=== PATIENT | female | born 1995 | race Caucasian/White ===

== ENCOUNTER 2018-10-11 18:29 | Emergency (ER) | payer SELFPAY ==
[~2018-10-11] VITALS: Ht 157.5 cm; Wt 43.2 kg
[2018-10-11 18:51] VITALS: Ht 157.5 cm; Wt 43.2 kg
[2018-10-11] MEDS ORDERED: MIDODRINE HCL2.5 MG PO (18:52)
[2018-10-11 19:29] LABS: BASOPHILS 0.2 % (0-2); EOSINOPHILS 2.5 % (0-7); HEMATOCRIT 38.3 % (36.0-48.0); HEMOGLOBIN 13.4 g/dL (12-16); IMMATURE GRANULOCYTES 0.2 % (0-5); LYMPHOCYTES 46.2 % (15-50); MCH 31.7 pg (26.0-34.0); MCV 90.5 fL (80.0-100.0); MEAN PLATELET VOLUME 9.3 fL (7.4-10.4); MONOCYTES 8.1 % (2-11); NEUTROPHILS 42.8 % (40-80); PLATELET COUNT 183 10x3/uL (130-400); RBC 4.23 10x6/uL (4.00-5.40); WBC 4.5 10x3/uL (4.8-10.8)
[2018-10-11 19:32] LABS: APPEARANCE CLEAR (CLEAR); BILIRUBIN NEGATIVE (NEGATIVE); COLOR YELLOW (YELLOW); GLUCOSE NEGATIVE (NEGATIVE); KETONE NEGATIVE (NEGATIVE); NITRITE NEGATIVE (NEGATIVE); PROTEIN NEGATIVE (NEGATIVE); SPECIFIC GRAVITY 1.015 (1.005-1.020); UROBILINOGEN NORMAL (NORMAL)
[2018-10-11 19:46] LABS: ALBUMIN 4.3 g/dL (3.4-5.0); ALKALINE PHOSPHATASE 56 U/L (46-116); ALT (SGPT) 30 U/L (10-68); AMYLASE - SERUM 29 U/L (25-115); BILIRUBIN - TOTAL 0.53 mg/dL (0.2-1.3); CALC OSMOLALITY 281 mosm/kg (275-300); CALCIUM 9.2 mg/dL (8.5-10.1); CARBON DIOXIDE 28.2 mmol/L (21.0-32.0); CHLORIDE - SERUM 104 mmol/L (98-107); CREATININE - SERUM 0.7 mg/dL (0.6-1.3); GLUCOSE 133 mg/dL (74-106); LIPASE 90 U/L (73-393); POTASSIUM - SERUM 3.8 mmol/L (3.5-5.1); PROTEIN - SERUM 7.3 g/dL (6.4-8.2); SODIUM 141 mmol/L (136-145); UREA NITROGEN 11 mg/dL (7-18); eGFR NON AFRICAN AMERICAN > 90 mL/min (90-120)
[2018-10-11 20:22] LABS: HCG SERUM NEGATIVE (NEGATIVE)
[2018-10-11 23:47] VITALS: BP 107/65
== END 2018-10-11 23:42 | disposition home or self-care (01) ==
LOC: D.ER 18:29
PROVIDERS: Family Medicine
DX: R10.31 Right lower quadrant pain (principal); K59.00 Constipation, unspecified

== ENCOUNTER 2019-09-15 08:54 | Emergency (ER) | payer SELFPAY ==
[~2019-09-15] VITALS: Ht 157.5 cm; Wt 43.2 kg
[~2019-09-15 08:54] MED LIST: MIDODRINE HCL2.5 MG PO
[2019-09-15 08:59] VITALS: Ht 157.5 cm; Wt 43.2 kg
[2019-09-15 09:19] LABS: BASOPHILS 0.3 % (0-2); EOSINOPHILS 0.9 % (0-7); IMMATURE GRANULOCYTES 0.2 % (0-5); LYMPHOCYTES 30.9 % (15-50); MCH 31.7 pg (26.0-34.0); MCHC 33.3 g/dL (31.0-37.0); MEAN PLATELET VOLUME 9.4 fL (7.4-10.4); MONOCYTES 9.3 % (2-11); NEUTROPHILS 58.4 % (40-80); PLATELET COUNT 196 10x3/uL (130-400); RBC 4.42 10x6/uL (4.00-5.40); RDW 12.2 % (11.5-14.5); WBC 5.8 10x3/uL (4.8-10.8)
[2019-09-15 09:22] LABS: GLUCOSE NEGATIVE (NEGATIVE); KETONE NEGATIVE (NEGATIVE); NITRITE NEGATIVE (NEGATIVE); SPECIFIC GRAVITY 1.015 (1.005-1.020)
[2019-09-15 09:23] LABS: BILIRUBIN NEGATIVE (NEGATIVE); HCG URINE NEGATIVE (NEGATIVE)
[2019-09-15 09:29] LABS: CALC OSMOLALITY 276 mosm/kg (275-300); CALCIUM 9.1 mg/dL (8.5-10.1); CARBON DIOXIDE 27.9 mmol/L (21.0-32.0); CHLORIDE - SERUM 103 mmol/L (98-107); CREATININE - SERUM 0.7 mg/dL (0.6-1.3); GLUCOSE 96 mg/dL (74-106); POTASSIUM - SERUM 4.3 mmol/L (3.5-5.1); SODIUM 139 mmol/L (136-145); UREA NITROGEN 11 mg/dL (7-18); eGFR NON AFRICAN AMERICAN > 90 mL/min (90-120)
[2019-09-15 09:34] LABS: ALBUMIN 4.4 g/dL (3.4-5.0); ALKALINE PHOSPHATASE 65 U/L (30-120); ALT (SGPT) 25 U/L (10-68); AMYLASE - SERUM 22 U/L (25-115); BILIRUBIN - TOTAL 0.71 mg/dL (0.2-1.3); PROTEIN - SERUM 7.4 g/dL (6.4-8.2)
[2019-09-15 09:36] LABS: LIPASE 49 U/L (73-393)
[2019-09-15] MEDS ORDERED: NAPROSYN500 MG PO (11:53)
[2019-09-15 12:04] VITALS: BP 123/84
== END 2019-09-15 12:05 | disposition home or self-care (01) ==
LOC: D.ER 08:54
PROVIDERS: Family Medicine
DX: N83.201 Unspecified ovarian cyst, right side (principal); K59.00 Constipation, unspecified; R10.31 Right lower quadrant pain; R11.2 Nausea with vomiting, unspecified